=== PATIENT | female | born 1940 | race Native Hawaiian/Other Pacific Islander ===

== ENCOUNTER 2018-12-20 07:32 | Outpatient (CLI) | payer BC ==
[~2018-12-20 07:32] MED LIST: CLOTCRE5 EX; DICL1GEL2 TOP; LEVO0.0723 PO; METF500T PO; METO50TA27 PO; MOBIC15 MG PO; SIMV20TA2 PO; UNITH DIRECT50 MCG OR; Z-PAK PO
== END 2018-12-20 21:51 | disposition home or self-care (01) ==
LOC: RAD 07:32
DX: Z13.820 Encounter for screening for osteoporosis (principal); N95.8 Other specified menopausal and perimenopausal disorders